=== PATIENT | female | born 1970 | race Caucasian/White ===

== ENCOUNTER 2019-09-28 18:46 | Emergency (ER) | payer MEDICAID, SELFPAY ==
[2019-09-28 19:04] VITALS: BP 126/75; PULSE 77; RESP 18; TEMP 36.8; O2SAT 97; BMI 38.7
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
--- NOTE | 2019-09-28 19:28 | CTR_ITS ---
PROCEDURE INFORMATION: Exam: CT Head Without Contrast Exam date and time: 09/28/2019 7:32 PM Age: 48 years old Clinical indication: Pain; Altered mental status/memory loss; Headache; Additional info: Trevizo/ams TECHNIQUE: Imaging protocol: Computed tomography of the head without contrast. Total DLP: 892.76 mGy-cm Radiation optimization: All CT scans at this facility use at least one of these dose optimization techniques: automated exposure control; mA and/or kV adjustment per patient size (includes targeted exams where dose is matched to clinical indication); or iterative reconstruction. COMPARISON: CT head wo con* [id number] 04/05/2017 2:39 PM FINDINGS: Brain: Normal. No hemorrhage. Unremarkable white matter. No mass effect. Ventricles: Normal. No ventriculomegaly. Bones/joints: Unremarkable. No acute fracture. Sinuses: Visualized sinuses are unremarkable. No fluid levels. Mastoid air cells: Visualized mastoid air cells are well aerated. Soft tissues: Unremarkable. CT/CT head wo con* [id number] IMPRESSION: No acute intracranial abnormality. Radiation Dose CTDIVOL = (mGy): DLP = 892.76 (mGy-cm)
--- NOTE | 2019-09-28 19:28 | CTR_ITS ---
PROCEDURE INFORMATION: Exam: CT Cervical Spine Without Contrast Exam date and time: 09/28/2019 7:32 PM Age: 48 years old Clinical indication: Neck pain TECHNIQUE: Imaging protocol: Computed tomography images of the cervical spine without contrast. Total DLP: 758.06 mGy-cm Radiation optimization: All CT scans at this facility use at least one of these dose optimization techniques: automated exposure control; mA and/or kV adjustment per patient size (includes targeted exams where dose is matched to clinical indication); or iterative reconstruction. COMPARISON: CT Cervical Spine w cont [id number] 10/17/2015 11:26 AM FINDINGS: Vertebrae: Mild leftward cervical curvature. The vertebral body stature is normal. Mild disc space narrowing at C2-C3 through C5-C6. The facets are intact with mild degenerative changes. Discs/Spinal canal/Neural foramina: Mild-moderate right bony foraminal stenosis at C3-C4 and C4-C5. Mild disc bulge at C3-C4 and C4-C5 with mild central canal stenosis. Soft tissues: Unremarkable. Lymph nodes: Prominent cervical lymph nodes, the largest on the right measuring 1.7 cm. Lungs: Lung apices are normal. CT/CT cervical spin wo con* [id number] IMPRESSION: 1. No fracture or subluxation. 2. Mild degenerative changes as described. 3. Stable prominent cervical lymph nodes are most likely reactive or inflammatory. Radiation Dose CTDIVOL = (mGy): DLP = 758.06 (mGy-cm)
--- NOTE | 2019-09-28 19:28 | XRR_ITS ---
PROCEDURE INFORMATION: Exam: XR Chest, 1 View Exam date and time: 09/28/2019 7:30 PM Age: 48 years old Clinical indication: Cough TECHNIQUE: Imaging protocol: XR of the chest Views: 1 view. COMPARISON: CR Chest 1 [place] [id number] 02/01/2018 10:29 PM FINDINGS: Lungs: Unremarkable. No consolidation. Pleural space: Unremarkable. No pleural effusion. No pneumothorax. Heart/Mediastinum: Unremarkable. No cardiomegaly. Bones/joints: Unremarkable. XR/XR chest 1V portable [id number] IMPRESSION: No acute findings.
--- NOTE | 2019-09-28 19:29 | ECG_ITS ---
Measurements Intervals [place] Rate: 72 P: 39 AR: 163 QRS: 44 QRSD: 106 T: 17 QT: 420 QTc: [address] DEVIATION AND MODERATE T-WAVE ABNORMALITY, CONSIDER ANTERIOR ISCHEMIA [-0.1+ mV T WAVE IN V3/V4] Compared to ECG 02/02/2018 00:59:48 Sinus bradycardia no longer present Intraventricular conduction delay no longer present T-wave abnormality still present Possible ischemia still present Electronically Signed On 09-29-2019 20:22:08 SUB ARC OPERATOR by Germaine Dey M.D. [email or web address]
[2019-09-28 19:34] VITALS: BP 93/53; PULSE 71; RESP 14; O2SAT 95
--- NOTE | 2019-09-28 19:40 | PC.NURSE ---
Xray in room
[2019-09-28 19:42] LABS: Basophils # 0.1 10^3/uL (0.0-0.1); Basophils % 0.9 %; Eosinophils # 0.3 10^3/uL (0.0-0.8); Eosinophils % 2.9 %; Hematocrit 40.3 % (37.0-47.0); Hemoglobin 13.3 g/dL (11.5-15.3); Lymphocytes # 2.8 10^3/uL (0.8-4.8); Mean Corpuscular Hemoglobin 31.4 pg (28.0-34.0); Mean Corpuscular Volume 95.3 fL (81-99); Mean Platelet Volume 10.6 fL (7.4-10.4); Monocytes # 0.6 10^3/uL (0.2-0.9); Monocytes % 6.3 %; Neutrophils # 6.1 10^3/uL (1.8-7.7); Neutrophils % 61.7 %; Nucleated Red Blood Cells % 0 %; Platelet Count 268 10^3/cmm (130-400); Red Blood Count 4.23 10^6/uL (4.1-5.3); Red Cell Distribution Width 12.5 % (12.1-15.1); White Blood Count 9.9 10^3/uL (4.0-10.0)
[2019-09-28 20:03] LABS: Lactic Sepsis W/Reflex 1.4 mmol/L (0.5-2.2)
[2019-09-28 20:04] LABS: Alanine Aminotransferase 9 U/L (0-33); Albumin Level 3.8 g/dL (3.5-5.2); Alkaline Phosphatase 90 IU/L (35-105); Anion Gap 13.9 (5-19); Aspartate Amino Transferase 14 U/L (0-32); Blood Urea Nitrogen 15 mg/dL (6-20); Calcium 9.3 mg/dL (8.5-10.5); Carbon Dioxide 31 mmol/L (22-29); Chloride 91 mmol/L (98-107); Globulin 2.9 g/dL (1.3-4.6); Glomerular Filtration Rate 130.6 mL/min (90-130); Glucose 116 mg/dL (65-115); Magnesium 2.1 mg/dL (1.7-2.3); Sodium 133 mmol/L (136-145); Total Bilirubin 0.2 mg/dL (0.15-1.2); Total Protein 6.7 g/dL (6.6-8.7)
[2019-09-28 20:05] LABS: Troponin(5th) Baseline 6 ng/mL (0-10)
[2019-09-28 20:06] LABS: Influenza A by IFA Negative (Negative); Influenza B by IFA Negative (Negative)
--- NOTE | 2019-09-28 20:06 | PC.NURSE ---
RT in room drawing ABG
[2019-09-28 20:08] LABS: Alcohol Level < 10 mg/dL (0-10); Potassium 2.9 mmol/L (3.5-5.1)
[2019-09-28] MEDS: sodium chloride 0.9% 1,000 ML 999 ML IV ×2 (20:34→22:13)
[2019-09-28 20:37] VITALS: BP 118/56; PULSE 72; RESP 16; O2SAT 93
[2019-09-28 21:28] VITALS: BP 123/88; PULSE 73; RESP 14; O2SAT 99
--- NOTE | 2019-09-28 21:29 | ECG_ITS ---
Measurements Intervals [place] Rate: 69 P: 35 IN: 172 QRS: 50 QRSD: 111 T: 28 QT: 433 QTc: 465 SINUS RHYTHM MODERATE INTRAVENTRICULAR CONDUCTION DELAY [110+ ms QRS DURATION] ST DEVIATION AND MODERATE T-WAVE ABNORMALITY, CONSIDER ANTERIOR ISCHEMIA [-0.1+ mV T WAVE IN V3/V4] Compared to ECG 02/02/2018 00:59:48 Sinus bradycardia no longer present T-wave abnormality still present Possible ischemia still present Electronically Signed On 09-29-2019 20:30:45 BALL MACHINE OPERATOR by Germaine Dey M.D. [email or web address]
[2019-09-28 21:35] LABS: Bilirubin Urine Neg (NEGATIVE); Blood Urine 2+ (Negative); Glucose Urine UA Norm (Normal); Ketones Urine Negative (Negative); Leukocyte Esterase Urine Negative (Negative); Nitrate Urine Positive (Negative); Protein Urine Neg (Negative); Urine Appearance SL Hazy (CLEAR); Urine Color Yellow (Yellow); Urobilinogen Urine Norm (Negative); pH Urine 5 (5-7)
[2019-09-28 21:46] LABS: Add Urine Culture? Yes; Bacteria Urine 3+; RBC Urine 0-4 /hpf (0-2); Squamous Epithelial Cell Urine 0-4 (0-5); WBC Urine 0-4 /hpf (0-5)
[2019-09-28 21:49] LABS: Monoscreen Negative (Negative)
[2019-09-28 21:51] LABS: Troponin 5 2HR Delta 0 ABS# (0-10)
[2019-09-28 21:53] LABS: Amphetamines Screen Urine Negative (Negative); Barbiturates Screen Urine Negative (Negative); Benzodiazepines Screen Urine Positive (Negative); Cocaine Screen Urine Negative (Negative); Opiate Screen Urine Negative (Negative); PCP Screen Urine Negative (Negative); THC Screen Urine Negative (Negative)
[2019-09-28 22:01] VITALS: BP 98/67; PULSE 75; O2SAT 100
[2019-09-28] MEDS: cefTRIAXone 1,000 MG in sodium chloride 0.9% (plus) 50 ML 100 MG IV (22:20)
--- NOTE | 2019-09-28 22:22 | PC.NURSE ---
Patient requested that the potassium 20meq in 100ml be discontinued, HCP notified and patient received 77ml of infusion.
[2019-09-28 22:53] VITALS: BP 124/81; PULSE 73; RESP 16; O2SAT 98
[2019-10-06 19:20] LABS: ABG PCO2 44.3 mmHg (35-45); ABG PH Result 7.49 (7.35-7.45); Arterial Blood Gas Hematocrit 43.2 % (37-47); Base Excess ABG 9.1 mmol/L (-2.0-2.0); Blood Gas Allen Test Pos; Blood Gas Sample Site Radial, right; Blood Gas Sample Type Arterial; HCO3 ABG 33.6 mmol/L (22-26); Oxygen Device ROOM AIR; PO2 ABG 73.3 mmHg (80.0-100.0)
== END 2019-09-28 22:57 | disposition home or self-care (01) ==
PROVIDERS: Emergency Provider Emergency Medicine; Family Provider Nurse Practitioner
DX: M54.12 Radiculopathy, cervical region (principal); E87.6 Hypokalemia; N39.0 Urinary tract infection, site not specified; J02.9 Acute pharyngitis, unspecified; F17.200 Nicotine dependence, unspecified, uncomplicated
CPT/HCPCS: 36600; 70450; 71045; 72125; 80053; 80307; 81001; 82803; 83605; 83735; 84484; 85025; 86308; 87077; 87086; 87186; 87804; 93005; 96365; 96366; 96367; 99284; A9270; J0696; J3480; J7030

== ENCOUNTER → 2020-01-03 15:30 | Outpatient (BNVA) | payer MEDICAID, SELFPAY | PROVIDERS: Family Provider Nurse Practitioner; Visit Provider Nurse Practitioner Family | DX: F20.9 Schizophrenia, unspecified (principal); F43.10 Post-traumatic stress disorder, unspecified; E16.2 Hypoglycemia, unspecified; E55.9 Vitamin D deficiency, unspecified; E78.5 Hyperlipidemia, unspecified | CPT/HCPCS: 80053; 80061; 82306; 83036; 85025 ==

== ENCOUNTER 2020-03-31 16:26 | Emergency (ER) | payer MEDICAID, SELFPAY ==
[2020-03-31 16:29] VITALS: BP 114/86; PULSE 98; RESP 18; TEMP 36.8; O2SAT 96; BMI 38.7
--- NOTE | 2020-03-31 16:36 | XRR_ITS ---
PROCEDURE INFORMATION: Exam: XR Right Foot Complete Exam date and time: 03/31/2020 5:56 PM Age: 49 years old Clinical indication: Injury or trauma; Injury history: Not specified; Initial encounter; Blunt trauma; Foot; Right TECHNIQUE: Imaging protocol: XR Right foot. Views: 3 or more views. COMPARISON: No relevant prior studies available. FINDINGS: Evaluation is somewhat by positioning with superimposition of multiple toes. Bones/joints: No gross evidence for acute bony injury or malalignment in the visualized right foot. Soft tissues: No radiopaque foreign body. Other findings: XR/XR foot RT min 3V* [id number] IMPRESSION: 1. Evaluation is somewhat by positioning with superimposition of multiple toes. 2. No gross evidence for acute bony injury or malalignment in the visualized right foot.
--- NOTE | 2020-03-31 16:41 | ED_ITS ---
HPI - Extremity Problem General: Chief complaint: Extremity Injury, Lower Stated complaint: right foot pain Time Seen by Provider: 03/31/20 16:35 History of Present Illness: HPI Narrative: She states she ran over her right foot about an hour ago with her power wheelchair and says it hurts but not bad she has not taken her shoe off. Complaint: extremity pain Onset (ago): hour(s) Pain Consistency: intermittent Location: right and lower extremity Severity scale (1-10): 4 Quality: aching Associated symptoms: Deny chest pain, fever(s) or rash Review of Systems Const: Denies: fever(s), chills or body aches Eyes: Denies: change in vision or blurry vision ENMT: Denies: throat pain or nasal congestion Card: Denies: chest pain or dyspnea on exertion Resp: Denies: dyspnea, productive cough or non-productive cough GI: Denies: abdominal pain, nausea or vomiting Musc: Reports: extremity pain (Renal right foot with powered wheelchair) Skin/Breast: Denies: rash Neuro: Denies: headache(s) Psych: Denies: anxiety or depression Froy/Lymph: Denies: easy bruising PFSH ED PFSH: Medical History (Updated 03/16/20 @ 23:52 by BROOKE Wiseman) COPD (chronic obstructive pulmonary disease) GERD (gastroesophageal reflux disease) Hyperlipidemia TERRELL on CPAP Osteogenesis imperfecta PTSD (post-traumatic stress disorder) Schizophrenia, unspecified 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 Surgical History History of arthroscopy of left knee 1986 History of cholecystectomy History of foot surgery Right History of laparoscopy Cyst ovary History of left knee surgery age 13 patella reconstruction History of surgery Left tibia and femur with bone implant History of umbilical hernia repair Family History Mother Cancer breast, uterine, ovarian, colon CAD (coronary artery disease) Hypertension Brother Cancer thyroid Diabetes Father CAD (coronary artery disease) Hypertension Sister Hypertension Social History Smoking and tobacco status: current every day smoker cigarettes Packs smoked per day: 0.5 Years cigarettes smoked: 15 Second hand smoke exposure: No Alcohol intake: never Lives independently: Yes Household members: none Current occupational status: disabled History of recent travel: No Current gender identity: Female Physical Exam 2 Const: COMMON NORMALS: no acute distress, average body habitus and patient oriented x3 HENMT: COMMON NORMALS: normocephalic HEAD & SCALP: normal to inspection and normocephalic FACE & SINUS: normal facial exam Eye: COMMON NORMALS: conjunctivae normal GENERAL EYE: appearance normal, both eyes and all related structures CONJUNCTIVA: Yes conjunctivae normal Neck/C-Spine: COMMON NORMALS: no JVD Chest: COMMONS NORMALS: normal inspection of the chest Resp: COMMON NORMALS: normal respiratory effort Cardio: COMMON NORMALS: no JVD Extremity: COMMON NORMALS: normal to inspection and full ROM RIGHT LOWER EXTREMITY: Yes foot & digits (And all appears normal no swelling redness or abrasion noted) Neuro: COMMON NORMALS: patient oriented x3 Course Vital Signs: Vital signs: Vital Signs Temperature 98.3 F 03/31/20 16:29 Pulse Rate 98 03/31/20 16:29 Respiratory Rate 18 03/31/20 16:29 Blood Pressure 114/86 03/31/20 16:29 Pulse Oximetry 96 03/31/20 16:29 Discharge Plan Discharge Prescriptions: No Action triamcinolone acetonide 0.1 % cream 1 applic TOPICAL BID Qty: 80 RF: 0 ProAir HFA 90 mcg/actuation HFA aerosol inhaler See Rx Instructions .ROUTE .COMPLEX Qty: 8.5 RF: 5 chlorthalidone 25 mg tablet 25 mg PO QDAY Qty: 30 RF: 5 Hold Instructions: Dry mouth Linzess 145 mcg capsule See Rx Instructions .ROUTE .COMPLEX Qty: 30 RF: 5 loratadine 10 mg tablet 10 mg PO DAILY Qty: 30 RF: 5 magnesium oxide 400 mg magnesium tablet 400 mg PO BID Qty: 60 RF: 5 montelukast 10 mg tablet 10 mg PO DAILY Qty: 30 RF: 5 pantoprazole 40 mg tablet,delayed release (DR/EC) 40 mg PO DAILY Qty: 30 RF: 5 rosuvastatin 40 mg tablet 40 mg PO DAILY Qty: 30 RF: 5 chlorhexidine gluconate [Peridex] 0.12 % mouthwash 15 ml BUCCAL BID Qty: 600 RF: 0 lisinopril 20 mg tablet 20 mg PO DAILY Qty: 30 RF: 0 quetiapine 100 mg tablet 100 mg PO BEDTIME Qty: 30 RF: 5 guaifenesin [Mucinex] 600 mg tablet extended release 12hr See Rx Instructions .ROUTE .COMPLEX Qty: 120 RF: 5 calcium carbonate-vitamin D3 [Oyster Shell Calcium-Vit D3] 500 mg(1,250mg) - 200 unit tablet 1 tab PO DAILY Qty: 30 RF: 11 oxycodone 20 mg Tablet 20 mg PO QID PRN (Reason: Pain) RF: 0 diazepam [Valium] 5 mg Tablet 5 mg PO TID PRN (Reason: Muscle Pain) RF: 0 gabapentin 800 mg tablet 800 mg PO QID RF: 0 fentanyl 75 mcg/hr patch 72 hour See Rx Instructions .ROUTE .COMPLEX RF: 0 naproxen 500 mg tablet 500 mg PO BID RF: 0 lidocaine 5 % ointment See Rx Instructions .ROUTE .COMPLEX RF: 0 Coding Level of Care Code ED Buffing [employer] Counter for Britton Odonnell
== END 2020-03-31 18:33 | disposition home or self-care (01) ==
PROVIDERS: Emergency Provider Physician Assistant; PCP Nurse Practitioner
DX: M79.671 Pain in right foot (principal); J44.9 Chronic obstructive pulmonary disease, unspecified; E78.5 Hyperlipidemia, unspecified; F17.210 Nicotine dependence, cigarettes, uncomplicated
CPT/HCPCS: 12345; 73630; 99281; 99282

== ENCOUNTER → 2020-04-01 16:00 | Outpatient (BNVA) | payer MEDICAID, SELFPAY | PROVIDERS: PCP Nurse Practitioner; Visit Provider Nurse Practitioner | DX: I10 Essential (primary) hypertension (principal); E55.9 Vitamin D deficiency, unspecified | CPT/HCPCS: 80053; 80061; 84443 ==

== ENCOUNTER 2020-05-21 13:03 | Outpatient (CLI) | payer MEDICAID, SELFPAY ==
--- NOTE | 2020-05-21 13:00 | CT_ITS ---
WS: [id number] CT CHEST WITH INTRAVENOUS CONTRAST HISTORY: lung nodule right TECHNIQUE: Contiguous 5 mm axial imaging performed on the thorax. Coronal and sagittal reformats are submitted. All CT scans at [facility] use at least one of these dose optimization techniq ues: automated exposure control; mA and/or kV adjustment per patient size (includes targeted exams wh ere dose is matched to clinical indication); or iterative reconstruction. CONTRAST: Omnipaque 300; 95 mL IV. DLP: 996.13 mGycm COMPARISON: 02/02/2018 Lungs and central airway: Long-term stability of a well-rounded, noncalcified nodule medial RIGHT low er lobe measuring 14 mm. There are few at additional scattered areas of groundglass attenuation in th e RIGHT upper lobe. LEFT lung is clear. Pleura: Normal. No pleural effusion. Heart and pericardium: Normal size heart with no pericardial effusion. Mediastinum and jolene: No mediastinum or hilar adenopathy. Vessels: Normal size aortic and pulmonary artery. No coronary artery calcifications. Chest wall and lower neck: Mildly enlarged thyroid gland, similar to the prior study. Upper abdomen: Mild hepatic steatosis. Prior cholecystectomy. Visualized transverse colon is positive for moderate constipation. No adrenal mass. Mild atherosclerotic plaque in aorta. Osseous structures: Thoracolumbar scoliosis and degenerative disc disease at multiple levels. No bone destruction. CT/CT chest w con* [id number] IMPRESSION: 1. Long-term stability medial RIGHT lower lobe pulmonary nodule. 2. A few minimal areas of groundglass attenuation in the RIGHT upper lobe. Pro bably due to pneumonitis.
[2020-05-21] MEDS: iohexol 300 mg/mL 100 mL Btl IV (13:30)
== END 2020-05-21 13:04 | disposition home or self-care (01) ==
LOC: RADWPI 13:06
PROVIDERS: PCP Nurse Practitioner; Visit Provider Nurse Practitioner
DX: R91.1 Solitary pulmonary nodule (principal)
CPT/HCPCS: 71260; Q9967

== ENCOUNTER → 2020-07-16 13:34 | Outpatient (BNVA) | payer MEDICAID, SELFPAY | PROVIDERS: PCP Nurse Practitioner; Visit Provider Nurse Practitioner | DX: Q78.0 Osteogenesis imperfecta (principal); G89.4 Chronic pain syndrome; M47.12 Other spondylosis with myelopathy, cervical region; M47.16 Other spondylosis with myelopathy, lumbar region | CPT/HCPCS: 72040; 72072; 72100; 73523; 73562 ==

== ENCOUNTER → 2021-01-01 16:39 | Outpatient (BNVA) | payer MEDICAID, SELFPAY | PROVIDERS: PCP Nurse Practitioner; Visit Provider Nurse Practitioner | DX: E55.9 Vitamin D deficiency, unspecified (principal); M47.16 Other spondylosis with myelopathy, lumbar region; J30.89 Other allergic rhinitis; I10 Essential (primary) hypertension; K21.9 Gastro-esophageal reflux disease without esophagitis; G47.00 Insomnia, unspecified; Z87.891 Personal history of nicotine dependence; Q78.0 Osteogenesis imperfecta; K06.9 Disorder of gingiva and edentulous alveolar ridge, unspecified; K59.09 Other constipation; E78.5 Hyperlipidemia, unspecified; G89.4 Chronic pain syndrome | CPT/HCPCS: 80053; 80061; 82306; 84443; 85025 ==

== ENCOUNTER → 2021-04-13 16:25 | Outpatient (BNVA) | payer MEDICAID, SELFPAY | PROVIDERS: PCP Nurse Practitioner; Visit Provider Nurse Practitioner | DX: E78.5 Hyperlipidemia, unspecified (principal); E55.9 Vitamin D deficiency, unspecified; E04.1 Nontoxic single thyroid nodule; K59.09 Other constipation | CPT/HCPCS: 80053; 80061; 82306; 84443; 85025 ==

== ENCOUNTER → 2021-11-27 11:05 | Outpatient (BNVA) | payer MEDICAID, SELFPAY | PROVIDERS: PCP Nurse Practitioner; Visit Provider Nurse Practitioner | DX: E78.5 Hyperlipidemia, unspecified (principal); E55.9 Vitamin D deficiency, unspecified; I10 Essential (primary) hypertension | CPT/HCPCS: 80053; 80061; 82306; 84443; 85025 ==

== ENCOUNTER → 2022-09-28 17:03 | Outpatient (BNVA) | payer MEDICAID, SELFPAY | PROVIDERS: PCP Nurse Practitioner; Visit Provider Nurse Practitioner | DX: E55.9 Vitamin D deficiency, unspecified (principal); E78.5 Hyperlipidemia, unspecified; I10 Essential (primary) hypertension | CPT/HCPCS: 80053; 80061; 82306; 84443; 85025 ==

== ENCOUNTER → 2023-01-25 16:11 | Outpatient (BNVA) | payer MEDICAID, SELFPAY | PROVIDERS: PCP Nurse Practitioner; Visit Provider Nurse Practitioner | DX: J44.9 Chronic obstructive pulmonary disease, unspecified (principal); Q78.0 Osteogenesis imperfecta; M47.16 Other spondylosis with myelopathy, lumbar region; F43.10 Post-traumatic stress disorder, unspecified; E55.9 Vitamin D deficiency, unspecified; J30.89 Other allergic rhinitis; K59.04 Chronic idiopathic constipation; I10 Essential (primary) hypertension; K21.9 Gastro-esophageal reflux disease without esophagitis; G47.01 Insomnia due to medical condition; E78.5 Hyperlipidemia, unspecified | CPT/HCPCS: 80053; 80061; 81000; 82607; 84443 ==

== ENCOUNTER 2023-05-22 22:56 | Emergency (ER) | payer MEDICAID, SELFPAY ==
[2023-05-22 23:02] VITALS: BP 149/96; PULSE 84; RESP 18; TEMP 36.7; O2SAT 97; BMI 43.5
[2023-05-22 23:15] VITALS: BP 149/96; PULSE 95; RESP 24
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
[2023-05-23] MEDS: ondansetron 2 mg/ML SDV 2 mL 4 MG IVP (00:14)
[2023-05-23] MEDS: HYDROmorphone 1 mg/mL INJ 1 mL IVP (00:16)
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
[2023-05-23] MEDS: lisinopril 20 mg Tablet PO (02:15)
[2023-05-23 02:23] VITALS: BP 164/112; PULSE 83; RESP 20; O2SAT 95
== END 2023-05-23 02:19 | disposition home or self-care (01) ==
PROVIDERS: Emergency Provider Emergency Medicine; PCP Nurse Practitioner
DX: S32.020A Wedge compression fracture of second lumbar vertebra, initial encounter for closed fracture (principal); J18.9 Pneumonia, unspecified organism; F17.210 Nicotine dependence, cigarettes, uncomplicated; J44.9 Chronic obstructive pulmonary disease, unspecified; E78.5 Hyperlipidemia, unspecified; W05.0XXA Fall from non-moving wheelchair, initial encounter
CPT/HCPCS: 72128; 72131; 96374; 96375; 99285; J1170; J2405

== ENCOUNTER 2023-05-23 03:19 | Emergency (ER) | payer MEDICAID, SELFPAY ==
[2023-05-23 03:32] VITALS: BP 193/155; PULSE 93; RESP 18; TEMP 36.9; O2SAT 92; BMI 44.4
[2023-05-23] MEDS: LORazepam 2 mg Tablet PO (04:21)
[2023-05-23] MEDS: haloperidol inj 5 mg/mL INJ 1 mL IM (04:22)
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
[2023-05-23 05:00] VITALS: BP 149/100; PULSE 78; RESP 16; O2SAT 95
[2023-05-23 05:50] VITALS: BP 149/100; PULSE 78; RESP 16; TEMP 36.9; O2SAT 95
== END 2023-05-23 05:51 | disposition home or self-care (01) ==
PROVIDERS: Emergency Provider Emergency Medicine; PCP Nurse Practitioner
DX: R51.9 Headache, unspecified (principal); I10 Essential (primary) hypertension; F41.8 Other specified anxiety disorders; F17.210 Nicotine dependence, cigarettes, uncomplicated; J44.9 Chronic obstructive pulmonary disease, unspecified; E78.5 Hyperlipidemia, unspecified
CPT/HCPCS: 96372; 99284; J1630

== ENCOUNTER → 2023-08-24 15:23 | Outpatient (BNVA) | payer MEDICAID, SELFPAY | PROVIDERS: PCP Nurse Practitioner; Visit Provider Nurse Practitioner | DX: E55.9 Vitamin D deficiency, unspecified (principal); I10 Essential (primary) hypertension; J44.9 Chronic obstructive pulmonary disease, unspecified; Q78.0 Osteogenesis imperfecta; M47.16 Other spondylosis with myelopathy, lumbar region; F43.10 Post-traumatic stress disorder, unspecified; J30.89 Other allergic rhinitis; K59.04 Chronic idiopathic constipation; K21.9 Gastro-esophageal reflux disease without esophagitis; G47.01 Insomnia due to medical condition; E78.5 Hyperlipidemia, unspecified; E53.8 Deficiency of other specified B group vitamins | CPT/HCPCS: 80053; 80061; 82306; 82607; 83036; 84443; 85025 ==

== ENCOUNTER → 2024-02-22 15:26 | Outpatient (BNVA) | payer MEDICAID, SELFPAY | PROVIDERS: PCP Nurse Practitioner; Visit Provider Nurse Practitioner | DX: J44.9 Chronic obstructive pulmonary disease, unspecified (principal); Q78.0 Osteogenesis imperfecta; M47.16 Other spondylosis with myelopathy, lumbar region; E53.8 Deficiency of other specified B group vitamins; F43.10 Post-traumatic stress disorder, unspecified; E55.9 Vitamin D deficiency, unspecified; J30.89 Other allergic rhinitis; K59.04 Chronic idiopathic constipation; I10 Essential (primary) hypertension; K21.9 Gastro-esophageal reflux disease without esophagitis; G47.01 Insomnia due to medical condition; E78.5 Hyperlipidemia, unspecified; F41.8 Other specified anxiety disorders; E04.1 Nontoxic single thyroid nodule | CPT/HCPCS: 80053; 80061; 82306; 84443 ==

== ENCOUNTER → 2024-04-03 15:44 | Outpatient (BNVA) | payer MEDICAID, SELFPAY | PROVIDERS: PCP Nurse Practitioner; Visit Provider Nurse Practitioner | DX: I10 Essential (primary) hypertension (principal); E53.8 Deficiency of other specified B group vitamins; E55.9 Vitamin D deficiency, unspecified | CPT/HCPCS: 80053; 82306; 82607; 84443 ==

== ENCOUNTER 2024-07-18 17:59 | Emergency (ER) | payer MEDICAID, SELFPAY ==
[2024-07-18 18:06] VITALS: BP 143/91; PULSE 71; RESP 18; TEMP 36.8; O2SAT 98; BMI 38.7
[2024-07-18 18:43] VITALS: BP 112/86; PULSE 81; RESP 20; O2SAT 97
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
[2024-07-18] MEDS: ketorolac 60 mg/2 mL INJ IM (19:13)
[2024-07-18 19:55] VITALS: BP 117/83; PULSE 70; RESP 20; O2SAT 97
[2024-07-18] MEDS: HYDROcodone-acetaminophen 5-325 mg Tablet 1 TAB PO (21:14)
[2024-07-18 21:19] VITALS: BP 117/83; PULSE 70; O2SAT 98
== END 2024-07-18 21:15 | disposition home or self-care (01) ==
PROVIDERS: Emergency Provider Physician Assistant; PCP Nurse Practitioner
DX: S40.022A Contusion of left upper arm, initial encounter (principal); V89.2XXA Person injured in unspecified motor-vehicle accident, traffic, initial encounter; F17.210 Nicotine dependence, cigarettes, uncomplicated; J44.9 Chronic obstructive pulmonary disease, unspecified
CPT/HCPCS: 71100; 73060; 96372; 99284; J1885

== ENCOUNTER → 2025-01-15 12:27 | Outpatient (BNVA) | payer MEDICAID, SELFPAY | PROVIDERS: PCP Nurse Practitioner; Visit Provider Nurse Practitioner | DX: I10 Essential (primary) hypertension (principal); E55.9 Vitamin D deficiency, unspecified | CPT/HCPCS: 80053; 80061; 82306 ==